=== PATIENT | female | born 1965 | race Caucasian/White ===

== ENCOUNTER 2016-10-26 16:56 | Inpatient (IN) ==
[2016-10-26 17:36] LABS: MANUAL DIFF NEEDED? NO
[2016-10-26 17:43] LABS: BASO% 0.2 % (0.0-0.8); LYMPH% 11.4 % (20.5-51.1); MCH 28.7 PG (27-31)
[2016-10-26 17:47] LABS: EOS# 0.22 X1000 (0.0-0.7); EOS% 1.2 % (0.0-10.0); HEMATOCRIT 41.4 % (37.0-47.0); HEMOGLOBIN 14.6 g/dL (12.0-16.0); IMM GRAN# 0.05 X1000 (0.0-0.04); IMM GRAN% 0.3 % (0.0-0.5); LYMPH# 2.11 X1000 (1.2-3.4); MCHC 35.3 g/dL (33-37); MCV 81.3 FL (81-99); MONO# 1.23 X1000 (0.11-0.59); MONO% 6.6 % (1.7-9.3); MPV 11.1 FL (7.4-10.4); NEUT% 80.3 % (42.2-75.2); PLT 305 X1000 (130-400); RBC 5.09 XMIL (4.2-5.4)
[2016-10-26] MEDS ORDERED: ZOFRAN IV ONE (17:50)
[2016-10-26] MEDS ORDERED: NS 1,000 ML IV ONE (17:50)
--- NOTE | 2016-10-26 17:56 | PROVIDER DOCUMENTATION ---
HPI-Abdominal Pain/GI Problem - General Chief Complaint: Diarrhea Stated Complaint: DIARRHEA X 4DAYS Time Seen by Provider: 10/26/16 17:45 Source: family Unable to obtain history due to:: other (patient had stroke so cannot communicate well) Allergies/Adverse Reactions: Patient Allergies Allergy/AdvReac Type Severity Reaction Status Date / Time No Known Allergies Allergy Verified 10/26/16 19:50 Home Medications: Home Medication List Medication Instructions Recorded Confirmed Last Taken Type Escitalopram [Lexapro] 10 mg PO DAILY #30 tablet 08/23/16 10/26/16 10/26/16 Rx Omeprazole [Prilosec] 40 mg PO DAILY #30 capsule. 08/23/16 10/26/16 10/26/16 Rx - History of Present Illness-ABD Nature of Presenting Problems: 51 yo female presents to ER with c/o diarrhea for the past week then nausea and decreased appetite for the past 2 days. She denies being exposed to an illness , fever, or vomiting. She does have some abdominal cramping with diarrheal episodes. Abdominal Pain Onset Location: reports: generalized abdomen Pain Radiation: reports: no radiation Quality of Pain: reports: cramping Severity in ED: reports: mild Onset/Duration: reports: 1 week ago Timing: reports: still present Activities at Onset: reports: none Exposure to sick contacts?: No Modifying Factors: improves with: nothing Associated Symptoms: reports: diarrhea, nausea, weakness Last BM: this afternoon Dark Stools Present?: reports: none noticed Rectal Bleeding: reports: none Rectal Pain: reports: none # of Vomiting Episodes: 0 Emesis Description: reports: none Bruising or Bleeding Gums?: No Similar Symptoms Previously?: No Recently seen or treated by another doctor?: No Review of Systems - Adult - REVIEW OF SYSTEMS - ADULT Constitutional: reports: no symptoms reported Eyes: reports: no symptoms reported Ears, Nose, Mouth & Throat: reports: no symptoms reported Cardiovascular: reports: no symptoms reported Respiratory: reports: no symptoms reported Gastrointestinal: reports: see HPI, abdominal pain, diarrhea, nausea Genitourinary: reports: no symptoms reported Musculoskeletal: reports: no symptoms reported Integumentary: reports: no symptoms reported Neurological: reports: no symptoms reported Psychiatric: reports: no symptoms reported Endocrine: reports: no symptoms reported Hematologic/Lymphatic: reports: no symptoms reported Allergic/Immunologic: reports: no symptoms reported All Other Systems: Reviewed and Negative Past History - Adult - PAST MEDICAL HISTORY-ADULT Review of Records: reports: Old Records Reviewed, Nursing Assessment Review, Medications Reviewed, Social history reviewed & non-contributory. Gastrointestinal: reports: cancer Neurological: reports: CVA, stroke deficits Psychiatric: reports: depression, psychiatric problems, other (si) Other Conditions: reports: other cancer (colon 5 years ago) - PRIOR SURGERIES/PROCEDURES Surgical/Procedure History: reports: cholecystectomy, bowel surgery (Colon removal), gastric bypass - IMMUNIZATION STATUS Childhood Immunizations: See Nurse Assessment Flu Vaccine: See Nurse Assessment - SOCIAL HISTORY Living Situation: family Physical Exam-General - PHYSICAL EXAM-ADULT Initial Vital Signs Reviewed: Yes - CONSTITUTIONAL General Appearance: appears well, alert, no apparent distress - EYES Eyes: PERRL/EOMI - HEAD, EARS, NOSE, MOUTH & THROAT HENMT: normocephalic/atraumatic, moist mucous membranes - RESPIRATORY Respiratory: no respiratory distress - CARDIOVASCULAR Cardiovascular: normal peripheral pulses, tachycardia (118) - GASTROINTESTINAL (ABDOMEN) Abdominal Exam: non tender, soft, abnormal bowel sounds (hyperactive) - MUSCULOSKELETAL Back Exam: normal inspection, no CVA tenderness, no vertebral tenderness Extremity: normal inspection, no pedal edema - SKIN Integumentary: normal color, normal turgor, warm/dry - NEUROLOGIC Neurologic: grossly normal - PSYCHIATRIC Psych/Mental Status: normal mood/affect, normal thought content, normal thought process, oriented x 3 Progress - PLAN OF CARE/RESULTS Progress/Plan/Lab Results: 183-Discussed patient case/reviewed labs and x-ray with Dr. Hernández; he advised to obtain CT abd/pelvis. 2099-Discussed CT results with Dr. Hernández; he agreed with admission. Discussed everything with patient and spouse; they verbalized understanding. Hospitalist paged. [id number]-Discussed with patient of going to [place] to be admitted; they agree. Laboratory Tests 10/26/16 10/26/16 10/26/16 17:20 17:20 19:40 WBC 18.51 H RBC 5.09 Hgb 14.6 Hct 41.4 MCV 81.3 MCH 28.7 MCHC 35.3 RDW Std Deviation 13.4 Plt Count 305 MPV 11.1 H Immature Gran % (Auto) 0.3 Neut % (Auto) 80.3 H Lymph % (Auto) 11.4 L [place] % (Auto) 6.6 Eos % (Auto) 1.2 Baso % (Auto) 0.2 Immature Gran # (Auto) 0.05 H Neut # (Auto) 14.87 H Lymph # (Auto) 2.11 [place] # (Auto) 1.23 H Eos # (Auto) 0.22 Baso # (Auto) 0.03 Sodium 138 Potassium 3.1 L Chloride 98 Carbon Dioxide 21 L Anion Gap 19 BUN 6 L Creatinine 0.4 L Estimated GFR/1.73 m2 > 60 BUN/Creatinine Ratio 15 Glucose 104 Calculated Osmolality 274 Calcium 9.2 Total Bilirubin 0.40 AST 14 ALT 10 Alkaline Phosphatase 90 Total Protein 5.9 L Albumin 3.3 L Globulin 2.6 Albumin/Globulin Ratio 1.3 Amylase 30 Lipase 15 Urine Source CLEAN CATCH Urine Color YELLOW Urine Turbidity CLEAR Urine pH 6.0 Ur Specific [place] 1.020 Urine Protein 30 A Ur Glucose (Stick) NEGATIVE Ur Ketones (Stick) >150 Urine Blood TRACE A Urine Nitrite NEGATIVE Urine Bilirubin SMALL A Urobilinogen Dipstick 2 A Urine Leukocytes TRACE A Urine WBC (Auto) 10-20 A Urine RBC (Auto) <10 U Epithel Cells (Auto) <10 Urine Bacteria (Auto) NEGATIVE Orders Category Date Time Status ED: Orthostatic Vital Signs (E as directed Care 10/26/16 18:07 Active IV Insertion ORDERED Care 10/26/16 17:[address] ABD/PELVIS W/ IV CONT ONLY [CT] Stat Exams 10/26/16 18:35 Draft FLAT/UPRIGHT ABD/1 VIEW CHEST [RAD] Stat Exams 10/26/16 18:08 Taken AMYLASE [CHEM] Stat Lab 10/26/16 17:20 Completed CBC WITH ELECTRONIC DIFF [HEME] Stat Lab 10/26/16 17:20 Completed COMPREHENSIVE METABOLIC PANEL [CHEM] Stat Lab 10/26/16 17:20 Completed LIPASE [CHEM] Stat Lab 10/26/16 17:20 Completed URINALYSIS W/POSS RFLX CULT [URINALYSIS] Stat Lab 10/26/16 19:40 Completed URINE CULTURE [RM] Routine Lab 10/26/16 20:21 Received 0.9% Sodium Chloride Inj [Ns] 1,000 ml Med 10/26/16 17:50 Discontinued IV 999 mls/hr CefTRIAXONE 1 GM/NS [Rocephin 1 gm/Ns] 50 ml Med 10/26/16 20:26 Discontinued IV NOW Ciprofloxacin 400 mg/D5w [Cipro 400 mg/D5w] 200 ml Med 10/26/16 21:10 Active IV NOW Metronidazole 500 mg/Ns [Flagyl 500 mg/Ns] 100 ml Med 10/26/16 21:09 Active IV NOW Ondansetron [Zofran] Med 10/26/16 17:50 Discontinued 4 mg IV NOW ONE Vital Signs - 24 hr 10/26/16 10/26/16 10/26/16 17:09 20:02 20:04 Temperature 98.2 F 98.1 F Pulse Rate 118 H 94 H Pulse Rate [ 114 H Sitting] Pulse Rate [ 117 H Standing] Pulse Rate [ 89 Supine] Respiratory 20 16 Rate Blood Pressure 101/67 121/74 Blood Pressure 105/83 [Sitting] Blood Pressure 121/74 [Standing] Blood Pressure 118/75 [Supine] O2 Sat by Pulse 99 98 Oximetry - CT/MRI 1 CT Study: Abdomen, Pelvis Impression: Abnormal (severe and diffuse pancolitis & proctitis; probable infectious) - CONSULTS/PCP/HOSPITALIST Notification #1 *Consult/PCP/Hospitalist*: Dr. Bautista Time Discussed: 21:00 (hospitalist) Consult Disposition: Admit (to [place]) Departure - Departure Time of Disposition Order: 21:06 DIAGNOSIS: Ulcerative pancolitis, Proctitis, Nausea UTI (urinary tract infection) Qualifiers: Urinary tract infection type: acute cystitis Hematuria presence: with hematuria Qualified Code(s): N30.01 - Acute cystitis with hematuria Diarrhea Qualifiers: Diarrhea type: infectious Qualified Code(s): A09 - Infectious gastroenteritis and colitis, unspecified Disposition: ADMITTED INPATIENT 09 Certified Medical Emergency: Emergent Condition: Stable Referrals: Parker Hill MD [Primary Care Provider] - Attestation - Physician/ TANK Attestation Patient care was provided by Advanced Practice Provider:: Yes Advanced Practice Provider:: Radha Thacker Advanced Practice Provider documentation review:: The Mid-level provider documentation, treatment plan and medical decision making was reviewed by the physician who agrees with all treatment and medical decision making by the MLP.
[2016-10-26 18:00] LABS: AGAP 19; ALBUMIN 3.3 g/dL (3.5-5.0); ALKALINE PHOSPHATASE 90 U/L (32-104); AMYLASE 30 U/L (20-200); BUN 6 mg/dL (8-22); CALCIUM 9.2 mg/dL (8.8-10.2); CHLORIDE 98 mmol/L (98-107); COSMO 274; GOT 14 U/L (10-30); GPT 10 U/L (10-36); LIPASE 15 U/L (13-60); POTASSIUM 3.1 mmol/L (3.5-5.1); SODIUM 138 mmol/L (136-145); TCO2 21 mmol/L (25-35); TOTAL PROTEIN 5.9 g/dL (6.3-8.3)
[2016-10-26 19:49] LABS: URINE MICRO REVIEW NEEDED? NO; URINE SOURCE CLEAN CATCH
[2016-10-26 19:52] LABS: BILIRUBIN URINE SMALL (NEGATIVE); BLOOD URINE TRACE (NEGATIVE); COLOR YELLOW; GLUCOSE URINE NEGATIVE (NEGATIVE); LEUKOCYTES URINE TRACE (NEGATIVE); NITRITE URINE NEGATIVE (NEGATIVE); PROTEIN URINE 30 mg/dL (NEGATIVE); TURBIDITY URINE CLEAR (CLEAR); UROBILINOGEN URINE 2 mg/dL (NORMAL)
[2016-10-26 19:53] LABS: UR EPITHELIAL CELLS <10 /HPF (<10); URINE BACTERIA NEGATIVE /HPF; URINE CULTURE NEEDED? YES; URINE RBC <10 /HPF (<10)
[2016-10-26] MEDS ORDERED: ROCEPHIN 1 GM/NS 50 ML IV ONE (20:26)
--- NOTE | 2016-10-26 21:05 | Diag Imaging Result Document ---
PROCEDURE NAME: CT ABD/PELVIS W/ IV CONT ONLY - 10/26/2016 CT OF THE ABDOMEN AND PELVIS WITH INTRAVENOUS CONTRAST: A CT dose reduction protocol was used. COMPARISON: 03/22/2016. FINDINGS: There is severe diffuse lowery colitis with proctitis. No bowel obstruction or free air. Stable on complicated gastric bypass changes. Stable wide-mouth ventral hernia. Solid organs are unremarkable. The lung bases are clear and the heart size is normal. Bony structures are intact. IMPRESSION: Severe diffuse lowery colitis. MTDD
[2016-10-26] MEDS ORDERED: FLAGYL 500 MG/NS 100 ML IV ONE (21:09)
[2016-10-26] MEDS ORDERED: CIPRO 400 MG/D5W 200 ML IV ONE (21:10)
[2016-10-26] MEDS: CIPRO 400 MG/D5W 200 ML IV SCH (22:45)
[2016-10-26] MEDS: NS + KCL 20 MEQ 1,000 ML IV SCH (22:55)
[2016-10-26] MEDS ORDERED: FLAGYL 500 MG/NS 100 ML IV SCH (23:00)
--- NOTE | 2016-10-26 23:12 | HISTORY AND PHYSICAL ---
PRIMARY CARE PHYSICIAN: Dr. Hill. CHIEF COMPLAINT: Diarrhea x1 week. HISTORY OF PRESENTING ILLNESS: This is a 51-year-old female, with a history of cerebrovascular accident and colon cancer, who had presented to the emergency department with a 1-week history of having diarrhea, and not being able to the eat. She states the diarrhea was profuse, it was not subsiding, and subsequently she had come to the emergency department. In the ER, she was evaluated. She had a CAT scan done, which did show a pancolitis, and due to her presenting symptoms, it was thought that she would need hospitalization for further management. At the time of my examination, she had denied any headache, fever, chills, chest pain, shortness of breath, hemoptysis or weight changes. Complained of abdominal cramping. PAST MEDICAL HISTORY: Significant for CVA and colon cancer. PAST SURGICAL HISTORY: Colon surgery, gastric bypass, cholecystectomy, hysterectomy. ALLERGIES: No known drug allergies. CURRENT MEDICATIONS: As in MAR. SOCIAL HISTORY: She denies any history of smoking, alcohol or illicit drug use. FAMILY HISTORY: No history of coronary disease. REVIEW OF SYSTEMS: [employer] point systems is as in HPI. Other systems negative. PHYSICAL EXAMINATION: GENERAL: Cooperative, friendly female. She is resting comfortably now. VITAL SIGNS: Temperature 98.2, pulse 118, respirations 20, blood pressure 101/67, she is sating 99%. HEENT: Atraumatic, normocephalic. Extraocular movements intact. PERRLA. NECK: No rashes. CHEST: Clear to auscultation. CARDIOVASCULAR: Regular rate and rhythm. ABDOMEN: Soft, some mild tenderness. EXTREMITIES: No edema. NEURO: She is awake, alert, oriented x3. : No bladder distention. SKIN: Warm and has good turgor. LABORATORIES AND STUDIES: WBC is 18.51, hemoglobin 14.6, hematocrit 41.4, platelets 305,000. Sodium 138, potassium 3.1, chloride 98, CO2 of 21, BUN is 6, creatinine 0.4, glucose is 104. ASSESSMENT: A 51-year-old female who presented to the emergency department with a 1-week history of having diarrhea. She was found to have pancolitis on imaging. She will need hospitalization for further management. 1. Acute diarrhea. 2. Pancolitis. 3. Mild hypokalemia. PLAN: 1. We will admit patient to medical floor. 2. Continue with supportive treatment, IV fluids, antiemetics, pain control as needed. 3. We will check stool cultures. 4. We will continue patient on Flagyl and Cipro. 5. Put patient on DVT prophylaxis with SCDs. 6. We will continue to follow and reassess.
[2016-10-27] MEDS ORDERED: FLUZONE QUAD 2016-2017 SYRINGE IM ONE (02:52)
[2016-10-27] MEDS: PRILOSEC PO SCH ×2 (06:11→06:30)
[2016-10-27] MEDS: FLAGYL 500 MG/NS 100 ML IV SCH ×3 (06:30→22:10)
[2016-10-27] MEDS: NS + KCL 20 MEQ 1,000 ML IV SCH ×2 (06:37→14:20)
[2016-10-27 06:45] LABS: MANUAL DIFF NEEDED? NO
[2016-10-27 07:34] LABS: AGAP 15; BUN 4 mg/dL (8-22); CALCIUM 8.1 mg/dL (8.8-10.2); CHLORIDE 101 mmol/L (98-107); COSMO 271; POTASSIUM 2.9 mmol/L (3.5-5.1); SODIUM 137 mmol/L (136-145); TCO2 21 mmol/L (25-35)
[2016-10-27 07:58] LABS: BASO% 0.1 % (0.0-0.8); EOS% 0.5 % (0.0-10.0); HEMATOCRIT 37.4 % (37.0-47.0); HEMOGLOBIN 12.9 g/dL (12.0-16.0); IMM GRAN# 0.06 X1000 (0.0-0.04); IMM GRAN% 0.3 % (0.0-0.5); LYMPH# 1.65 X1000 (1.2-3.4); LYMPH% 8.6 % (20.5-51.1); MCH 28.2 PG (27-31); MCHC 34.5 g/dL (33-37); MCV 81.8 FL (81-99); MONO# 1.45 X1000 (0.11-0.59); MONO% 7.5 % (1.7-9.3); MPV 10.6 FL (7.4-10.4); PLT 259 X1000 (130-400); RBC 4.57 XMIL (4.2-5.4)
[2016-10-27] MEDS: LEXAPRO PO SCH (11:49)
[2016-10-27] MEDS: CIPRO 400 MG/D5W 200 ML IV SCH (11:49)
--- NOTE | 2016-10-27 12:29 | Diag Imaging Result Document ---
PROCEDURE NAME: FLAT/UPRIGHT ABD/1 VIEW CHEST - 10/26/2016 FRONTAL CHEST AND 2 VIEWS OF THE ABDOMEN: COMPARISON: 08/07/2016, 03/22/2016. FINDINGS: The chest is clear. There are scattered surgical clips and surgical suture lines throughout the abdomen and pelvis. No definite bowel obstruction or free air. There is an average quantity of stool. IMPRESSION: No acute disease.
[2016-10-27] MEDS: VANCOCIN PO SCH ×2 (17:20→19:55)
[2016-10-27] MEDS: CULTURELLE PO SCH ×2 (18:30→21:37)
[2016-10-27] MEDS: ZOFRAN IV PRN (21:42)
[2016-10-28] MEDS: VANCOCIN PO SCH ×4 (01:07→20:17)
[2016-10-28] MEDS: PRILOSEC PO SCH (06:13)
[2016-10-28] MEDS: FLAGYL 500 MG/NS 100 ML IV SCH ×2 (06:13→19:10)
[2016-10-28 06:48] LABS: HEMATOCRIT 36.8 % (37.0-47.0); HEMOGLOBIN 12.5 g/dL (12.0-16.0); MCH 27.8 PG (27-31); MCV 81.8 FL (81-99); MPV 11.3 FL (7.4-10.4); RBC 4.5 XMIL (4.2-5.4)
[2016-10-28 07:09] LABS: AGAP 17; BUN 3 mg/dL (8-22); CALCIUM 8.1 mg/dL (8.8-10.2); CHLORIDE 102 mmol/L (98-107); COSMO 272; SODIUM 138 mmol/L (136-145); TCO2 19 mmol/L (25-35)
[2016-10-28 07:11] LABS: POTASSIUM 2.4 mmol/L (3.5-5.1)
[2016-10-28] MEDS: LEXAPRO PO SCH (10:16)
[2016-10-28] MEDS: CULTURELLE PO SCH ×2 (10:16→20:18)
[2016-10-28] MEDS: NS + KCL 20 MEQ 1,000 ML IV SCH (10:17)
[2016-10-28] MEDS ORDERED: KLOR-CON PO ONE (13:41)
--- NOTE | 2016-10-28 20:27 | PROGRESS NOTE ---
DATE: 10/28/2016 SUBJECTIVE: Patient has no focal complaints. OBJECTIVE: Vital Signs: Blood pressure 109/67, heart rate of 80, respiratory rate 16, temperature 96 degrees, 98% on Cardiac: No murmurs, gallops or rubs. Gastrointestinal: Soft, nontender, nondistended. Bowel sounds are positive. Extremities: No clubbing or cyanosis. Lymphatic: No peripheral edema. LABORATORY: White count 17, potassium 2.4, white count 17. PROBLEM: 1. C. difficile colitis. We will continue vancomycin and Flagyl, and follow. 2. Hypokalemia. We will supplement and follow. Check magnesium and follow. We are going to advance her diet. DISPOSITION: Probably home in the next 1-2 days depending on her issues.
[2016-10-28] MEDS ORDERED: NUBAIN IV PRN (20:29)
[2016-10-28] MEDS: KLOR-CON PO SCH (20:41)
[2016-10-29] MEDS: FLAGYL 500 MG/NS 100 ML IV SCH ×3 (00:37→16:45)
[2016-10-29] MEDS: NS 1,000 ML IV SCH ×2 (00:38→12:08)
[2016-10-29] MEDS: ZOFRAN IV PRN ×4 (00:59→22:09)
[2016-10-29] MEDS: VANCOCIN PO SCH ×4 (02:50→16:50)
[2016-10-29] MEDS: PRILOSEC PO SCH (06:28)
[2016-10-29 06:38] LABS: HEMATOCRIT 34.3 % (37.0-47.0); HEMOGLOBIN 11.5 g/dL (12.0-16.0); MCH 27.6 PG (27-31); MCHC 33.5 g/dL (33-37); MCV 82.5 FL (81-99); MPV 11.1 FL (7.4-10.4); RBC 4.16 XMIL (4.2-5.4)
[2016-10-29 07:06] LABS: AGAP 12; BUN 1 mg/dL (8-22); CALCIUM 7.9 mg/dL (8.8-10.2); CHLORIDE 106 mmol/L (98-107); COSMO 276; MAGNESIUM 1.6 mg/dL (1.5-2.7); SODIUM 141 mmol/L (136-145); TCO2 23 mmol/L (25-35)
[2016-10-29 07:09] LABS: POTASSIUM 2.5 mmol/L (3.5-5.1)
[2016-10-29] MEDS ORDERED: KLOR-CON PO ONE (08:24)
[2016-10-29] MEDS: POTASSIUM CHLORIDE 20 MEQ/SWI 100 ML IV SCH ×3 (08:57→22:04)
[2016-10-29] MEDS: CULTURELLE PO SCH ×2 (08:59→20:57)
[2016-10-29] MEDS: LEXAPRO PO SCH (09:00)
[2016-10-29] MEDS: KLOR-CON PO SCH ×2 (09:00→20:57)
--- NOTE | 2016-10-29 14:57 | PROGRESS NOTE ---
DATE: 10/29/2016 SUBJECTIVE: The patient has no focal complaints. OBJECTIVE: Vital signs: Blood pressure 113/77, heart rate of 117, respiratory rate 18, temperature 98.4 degrees, 99% on room air. Cardiovascular: Regular rate and rhythm. Pulmonary: Bilateral breath sounds. Clear to auscultation. GI: Soft, nontender, nondistended. Bowel sounds are positive. LABORATORY DATA: Potassium 2.5. White count down to 11.9. PROBLEM LIST: 1. Clostridium difficile colitis. Clinically she is improving. I am going to switch her to 250 t.i.d. on the Vancocin. Leave her on Flagyl. She is still having a lot of stools. We will continue to follow. Decrease fluids. 2. Hypokalemia. We will supplement and follow. Check magnesium levels tomorrow. We will also monitor the rest of her data. DISPOSITION: Pending workup. Maybe another 1-2 days.
[2016-10-29] MEDS ORDERED: RESTORIL PO PRN (21:24)
[2016-10-30] MEDS: FLAGYL 500 MG/NS 100 ML IV SCH ×2 (01:32→09:25)
[2016-10-30] MEDS: POTASSIUM CHLORIDE 20 MEQ/SWI 100 ML IV SCH ×3 (05:54→16:04)
[2016-10-30] MEDS ORDERED: POTASSIUM CHLORIDE 20 MEQ/SWI 100 ML IV SCH (06:00)
[2016-10-30 06:08] LABS: HEMOGLOBIN 11.6 g/dL (12.0-16.0); MCH 27.6 PG (27-31); MCHC 33.1 g/dL (33-37); MCV 83.1 FL (81-99); MPV 10.9 FL (7.4-10.4); RBC 4.21 XMIL (4.2-5.4)
[2016-10-30] MEDS: PRILOSEC PO SCH (06:10)
[2016-10-30 06:42] LABS: AGAP 12; BUN 1 mg/dL (8-22); CALCIUM 8.1 mg/dL (8.8-10.2); CHLORIDE 105 mmol/L (98-107); COSMO 272; MAGNESIUM 1.7 mg/dL (1.5-2.7); POTASSIUM 3.2 mmol/L (3.5-5.1); SODIUM 139 mmol/L (136-145); TCO2 22 mmol/L (25-35)
[2016-10-30] MEDS: VANCOCIN PO SCH ×3 (09:24→16:30)
[2016-10-30] MEDS: CULTURELLE PO SCH ×2 (09:25→20:32)
[2016-10-30] MEDS: LEXAPRO PO SCH (09:25)
--- NOTE | 2016-10-30 12:40 | PROGRESS NOTE ---
DATE: 10/30/2016 Patient states diarrhea has improved. Recorded 5 bowel movements, though. PHYSICAL EXAMINATION: Blood pressure 105/69, heart rate of 86, respiratory rate 16, temperature 99 degrees, 96% on room air.Cardiovascular: Regular rate and rhythm. Pulmonary: Bilateral breath sounds. Clear to auscultation. GI: Soft, nontender, nondistended. Bowel sounds are positive. LABORATORY DATA: Her hemoglobin and hematocrit is 11 and 35. White count is normal. Potassium is up to 3.2. Rest of lab work is negative. PROBLEM LIST: 1. C. difficile colitis. She is on Flagyl and vancomycin. I am going to just leave her on the vancomycin for the time being. 2. Hypokalemia. We will continue to supplement and follow. She is not tolerating the p.o. so we will try Micro-K and see if she tolerates that better. DISPOSITION: Possibly home next 1-2 days. She seems to be improving. I think her baseline level is very deconditioned. We will continue to follow closely.
[2016-10-30] MEDS: NS 1,000 ML IV SCH ×2 (12:51→18:58)
[2016-10-30] MEDS: ZOFRAN IV PRN (20:40)
[2016-10-31] MEDS: PRILOSEC PO SCH (06:17)
[2016-10-31 06:28] LABS: HEMATOCRIT 34.9 % (37.0-47.0); HEMOGLOBIN 11.6 g/dL (12.0-16.0); MCH 27.7 PG (27-31); MCHC 33.2 g/dL (33-37); MCV 83.3 FL (81-99); MPV 10.4 FL (7.4-10.4); RBC 4.19 XMIL (4.2-5.4)
[2016-10-31 07:00] LABS: AGAP 10; BUN 1 mg/dL (8-22); CALCIUM 8.1 mg/dL (8.8-10.2); CHLORIDE 105 mmol/L (98-107); COSMO 274; POTASSIUM 2.7 mmol/L (3.5-5.1); SODIUM 140 mmol/L (136-145); TCO2 25 mmol/L (25-35)
[2016-10-31] MEDS ORDERED: KLOR-CON PO SCH (09:00)
[2016-10-31] MEDS: CULTURELLE PO SCH ×2 (09:37→20:43)
[2016-10-31] MEDS: VANCOCIN PO SCH ×3 (09:37→18:12)
[2016-10-31] MEDS: LEXAPRO PO SCH (09:37)
--- NOTE | 2016-10-31 09:56 | PROGRESS NOTE ---
DATE: 10/31/2016 SUBJECTIVE: The patient states that her diarrhea is improving, although she did have 6 bowel movements recorded over the last 24 hours. She states that she feels better overall. She denies any abdominal pain, nausea, vomiting, or any black or bloody stools. PHYSICAL EXAMINATION: Vital Signs: Blood pressure is 119/68, with a heart rate of 66, respirations are 18, temperature is 98.1 degrees oral, with room air saturations of 96-100%. General: This is a 51-year-old female who was sitting at the bedside in no distress. Cardiovascular: Regular rate and rhythm. S1 and S2 are appreciated. Pulmonary : Breath sounds are clear. No increased work of breathing noted. Gastrointestinal: Abdomen is soft, nontender, nondistended with bowel sounds in all 4 quadrants. Extremities: No clubbing, cyanosis, or edema. Calves are nontender. Pulses are palpable x4. Neurologic: She is alert and oriented x3. LABS: WBC is 8.8, with a hemoglobin of 11.6, hematocrit 34.9, platelets of 304, 000. Sodium is 140, potassium 2.7, BUN 1, creatinine 0.3, with a glucose of 80. PROBLEM LIST: 1. Clostridium difficile colitis. We will continue with Flagyl and vancomycin. 2. Hypokalemia. We will continue to supplement and follow. 3. Medications: Flagyl day 5, vancomycin day 4. 4. Disposition: Home in the next 1-2 days hopefully. Dictated by YOBANY Jacinto for Alexys Reno MD pt examined, agree with above, difficult to manage hypokalemia, pt has thrown up po kcl and she discontinues her own IV pumps when trying to infuse KCL, discussed that she needs to avoid pump manipulation; home soon once K level is normal [place]OT MTDD
[2016-10-31] MEDS: NS 1,000 ML IV SCH ×2 (11:38→17:54)
[2016-10-31] MEDS: POTASSIUM CHLORIDE 20 MEQ/SWI 100 ML IV SCH ×2 (11:38→17:53)
[2016-10-31] MEDS ORDERED: POTASSIUM CHLORIDE 40 MEQ in NS 250 ML IV SCH (16:00)
[2016-10-31] MEDS: ZOFRAN IV PRN (20:43)
[2016-10-31] MEDS: KLOR-CON PO SCH (20:43)
[2016-11-01] MEDS ORDERED: POTASSIUM CHLORIDE 40 MEQ in NS 250 ML IV ONE (02:30)
[2016-11-01] MEDS: NS 1,000 ML IV SCH (03:30)
[2016-11-01] MEDS: PRILOSEC PO SCH (06:33)
[2016-11-01 06:49] LABS: HEMATOCRIT 36.2 % (37.0-47.0); MCH 27.5 PG (27-31); MCHC 33.1 g/dL (33-37); MCV 82.8 FL (81-99); MPV 10.3 FL (7.4-10.4); RBC 4.37 XMIL (4.2-5.4)
[2016-11-01 07:13] LABS: AGAP 10; BUN 1 mg/dL (8-22); CALCIUM 8.2 mg/dL (8.8-10.2); CHLORIDE 108 mmol/L (98-107); COSMO 278; POTASSIUM 3.1 mmol/L (3.5-5.1); SODIUM 142 mmol/L (136-145); TCO2 24 mmol/L (25-35)
[2016-11-01] MEDS: VANCOCIN PO SCH ×3 (09:23→17:22)
[2016-11-01] MEDS: KLOR-CON PO SCH (09:24)
[2016-11-01] MEDS: CULTURELLE PO SCH (09:24)
[2016-11-01] MEDS: LEXAPRO PO SCH (09:24)
[2016-11-01] MEDS: ZOFRAN IV PRN (13:06)
[2016-11-01 14:01] VITALS: BP 106/68
--- NOTE | 2016-11-01 20:42 | DISCHARGE SUMMARY ---
ADMISSION DATE: 10/26/2016 DISCHARGE DATE: 11/01/2016 PRIMARY CARE PHYSICIAN: Matthew Bautista M.D. DATE OF ADMISSION: 10/26/2016. DATE OF DISCHARGE: 11/01/2016. DIAGNOSES: 1. Clostridium difficile colitis. 2. Hypokalemia. DIAGNOSTICS: 10/26/2016: CT of the abdomen and pelvis revealed severe diffuse pancolitis. MICROBIOLOGY: Urine culture revealed no pathogenic growth. Clostridium difficile toxin positive. Stool culture revealed no Salmonella, Shigella, Campylobacter, or E. coli isolated. HOSPITAL COURSE: Ms. Thurman presented to the emergency room with 1 week of having profuse diarrhea. She was found to be hypokalemic. A CT scan revealed pancolitis. She was treated with IV hydration, electrolyte repletion, IV Flagyl and Cipro. Once E. coli was diagnosed she was placed on vancomycin p.o. as well as probiotics. She has done well. Diarrhea stools are decreasing. Through the hospitalization we have trended electrolytes and repleted as necessary. Cultures as stated above. PHYSICAL EXAMINATION: Cardiovascular: Regular rate and rhythm. S1 and S2 appreciated. Pulmonary: Breath sounds are clear. No increased work of breathing noted. Gastrointestinal: Abdomen is soft, nontender, nondistended with bowel sounds in all 4 quadrants. Neurologic: Alert and oriented x3 with cranial nerves 2-12 grossly intact. Skin: Warm and dry with no rashes or lesions noted. Extremities: No clubbing, cyanosis, or edema. Calves nontender. Pulses palpable x4. DISCHARGE MEDICATIONS: 1. Prilosec 40 mg daily. 2. Lexapro 10 daily. 3. Vancomycin 250 mg p.o. t.i.d. for 14 days. 4. Klor-Con 20 mEq daily for 10 days. 5. Culturelle 1 b.i.d. for 2 weeks. DISCHARGE VITAL SIGNS: Blood pressure 106/68 with a heart rate of 75, respirations 18, temperature 98 degrees oral with room air sats 95-98%. DISCHARGE ACTIVITY: As tolerated. DISCHARGED : GI soft. FOLLOWUP: She needs to follow up with Dr. Bautista, her primary care physician in 2-3 weeks, sooner if needed. She is being discharged home in stable condition with family members. DISCHARGE TIME: This is a greater than 30 minute discharge. Dictated by YOBANY Jacinto for Parker Hill MD cc: YOBANY Jacinto MD
== END 2016-11-01 19:42 | disposition home or self-care (01) ==
LOC: ED 16:56 → P.MEDSURG 16:57
PROVIDERS: ADMIT Family Medicine; ATTEND Internal Medicine